=== PATIENT | female | born 2005 | race Two or more races ===

== ENCOUNTER 2025-07-28 10:32 | Emergency (ER) | payer MEDICAID, SELFPAY ==
[2025-07-28 10:32] VITALS: BMI 35.9
[2025-07-28 10:41] VITALS: BP 117/83; PULSE 92; RESP 18; TEMP 36.8; O2SAT 96
--- NOTE | 2025-07-28 10:45 | XR_ITS ---
Examination: Abdomen sonogram, Limited Date and time of exam: July 28, 2025, 1119 hours INDICATIONS: Right upper abdominal pain beginning 2 days ago Technique: Real-time perrin scale transabdominal sonographic images of the upper abdomen obtained. Findings: No gallstones Gallbladder wall 0.4 cm Common bile duct 0.4 cm Pancreatic head 1.5 cm Liver 18.2 cm fatty infiltration no focal liver lesions Normal hepatopetal portal venous flow Patent IVC IMPRESSION: Negative for gallstones Borderline thickening gallbladder wall, clinical correlation advised, consider HIDA scan or MRCP follow-up to exclude cholecystitis as clinically warranted
--- NOTE | 2025-07-28 10:45 | XR_ITS ---
Examination: CT abdomen and pelvis without contrast. Coronal 3-D reconstructions. Sagittal 2-D reconstructions. Date and time of exam: July 28, 2025, 1142 hours INDICATIONS: Lower abdominal pain and nausea beginning 2 days ago CTDI: vol (mGy): 12.5 DLP: (mGycm): 711 Technique: Axial images of the abdomen have been obtained, 3 mm slice thickness Intravenous contrast material has not been administered. Low dose protocols were performed. One or more of the following dose reduction techniques were used; automated exposure control, adjustment of the mA and/or KV according to patient size, use of iterative reconstruction technique. Findings: Fatty infiltration throughout the liver. No focal liver or splenic lesions No gallstones No pancreatic mass No renal or ureteral calculi, no hydronephrosis Aorta normal size No bowel obstruction 5 mm fat-containing umbilical hernia Normal appendix No diverticulitis No pelvic mass Contracted urinary bladder Moderate osteopenia IMPRESSION: No renal or ureteral calculi, no hydronephrosis Normal appendix No bowel obstruction diverticulitis or free air
--- NOTE | 2025-07-28 10:46 | PD.EDRME ---
Rapid Medical Screening Exam RME Arrival date/time: 07/28/25 10:32 19-year-old female presents to the emergency department of complaint of generalized abdominal pain Chief Complaint: Abdominal Pain Vital signs: Vital Signs Temperature 98.2 F 07/28/25 10:41 Pulse Rate 92 07/28/25 10:41 Respiratory Rate 18 07/28/25 10:41 Blood Pressure 117/83 07/28/25 10:41 Pulse Oximetry (%) 96 07/28/25 10:41 Oxygen Delivery Method Room Air 07/28/25 10:41 Vital signs reviewed by provider: Yes Exam: On exam well-appearing does not appear look toxic does appear to be in pain Clinical Impression: Labs and imaging ordered
[2025-07-28] MEDS: KETOROLAC INJ 30 MG/ML VIAL IM (10:59)
[2025-07-28] MEDS: METOCLOPRAMIDE INJ 5 MG/ML VIAL 2 ML 10 MG IM (11:00)
[2025-07-28 11:07] LABS: Basophils # (Auto) 0.1 Thou/mm3 (0.0-0.2); Basophils % (Auto) 0 % (0-2.5); Eosinophils # (Auto) 0.0 Thou/mm3 (0.0-0.5); Eosinophils % (Auto) 0 % (0-10); Hematocrit 37.0 % (36.0-46.0); Hemoglobin 11.9 g/dL (12.0-16.0); Immature Granulocytes Auto 0.03 Thou/mm3 (0.00-0.00); Lymphocytes # (Auto) 0.7 Thou/mm3 (1.0-4.8); Lymphocytes % (Auto) 6 % (10-50); Mean Corpuscular HGB Conc 32.2 g/dl (31.0-37.0); Mean Corpuscular Hemoglobin 28.5 pg (25.0-35.0); Mean Corpuscular Volume 89 fL (80-100); Monocytes # (Auto) 0.6 Thou/mm3 (0.0-0.8); Monocytes % (Auto) 5 % (0-12); Neutrophils # (Auto) 10.3 Thou/mm3 (1.8-7.7); Neutrophils % (Auto) 88 % (37-80); Nucleated Red Blood Cell # 0.00 Thou/mm3 (0.00-0.00); Nucleated Red Blood Cell % 0 /100 WBC (0); Platelet Count 248 Thou/mm3 (140-440); RDW Standard Deviation 41.0 fL (36.4-46.3); Red Blood Count 4.17 Miln/mm3 (4.00-5.20); White Blood Count 11.7 Thou/mm3 (3.6-11.0)
[2025-07-28 11:21] LABS: Collection Type, Urine Clean Catch
[2025-07-28 11:25] LABS: HCG Qualitative,Urine Negative
[2025-07-28 11:27] LABS: Alanine Aminotransferase 33 U/L (10-49); Albumin, Serum 4.7 gm/dL (3.5-5.0); Albumin/Globulin Ratio 1.8 (1.2-2.2); Alkaline Phosphatase 78 U/L (46-116); Anion Gap 11 (7-16); Aspartate Amino Transferase 27 U/L (0-34); BUN/Creatinine Ratio 10 Ratio (12-20); Bilirubin,Total 0.3 mg/dL (0.3-1.2); Blood Urea Nitrogen 7 mg/dL (9-23); Calcium 8.8 mg/dL (8.3-10.6); Calcium (Corrected) 8.8 mg/dL (8.5-10.1); Carbon Dioxide 24.4 mMol/L (20.0-31.0); Chloride 105 mMol/L (98-107); Creatinine (Component) 0.7 mg/dL (0.6-1.3); Estimated Creatinine Clearance 137.0 mL/min (>60); Globulin 2.6 gm/dL (2.3-3.5); Glucose 120 mg/dL (74-106); Lipase 23 U/L (12-53); Osmolality,Calculated 278 (275-295); Potassium 4.0 mMol/L (3.4-5.1); Sodium 140 mMol/L (136-145); Total Protein 7.3 gm/dL (5.7-8.2); eGFR > 60 See Note
[2025-07-28 11:31] LABS: Bilirubin,Urine Negative (Negative); Blood,Urine 3+ (Negative); Color,Urine Yellow (Lt Yel-Yel); Culture Indicated,Urine Contaminated; Glucose, Urine Negative (Negative); Ketones,Urine Negative (Negative); Leukocyte Esterase,Urine Positive (Negative); Nitrite,Urine Negative (Negative); PH,Urine 6.0 (5.0-7.0); Protein,Urine 1+ (Neg - Trace); RBC,Urine 510 /hpf (0-3); Specific Gravity,Urine 1.033 (1.001-1.035); Squamous Epithelial Cell,Urine 18 /hpf (0-5); Urobilinogen,Urine Negative mg/dL (0.0-1.0); WBC,Urine 76 /hpf (0-5)
[2025-07-28 11:35] LABS: Clarity,Urine Hazy (Clear/Hazy)
--- NOTE | 2025-07-28 12:41 | EDNOTE_ITS ---
ED General RME/HPI General Chief complaint: Abdominal Pain Stated complaint: abd pain Time Seen by Provider: 07/28/25 12:18 Arrival date/time: 07/28/25 10:32 CC: Abdominal pain CC: Ongoing since yesterday epigastric with radiation into the belly and up above the epigastrium. To a lesser stents there 2 to 3 months ago but now severe today. No prior history of similar events no OTC medicines taken denies chest pain shortness of breath or difficulty breathing. RME / HPI RME / HPI narrative: 07/28/25 10:32 19-year-old female presents to the emergency department of complaint of generalized abdominal pain Exam: On exam well-appearing does not appear look toxic does appear to be in pain Impression: Labs and imaging ordered Related Data Previous Rx's ?Medication ?Instructions ?Recorded acetaminophen 500 mg tablet 500 mg PO QID PRN pain #14 tabs 07/10/18 famotidine 20 mg tablet 20 mg PO QDAY #30 tabs 07/28 Allergies Allergy/AdvReac Type Severity Reaction Status Date / Time No Known Allergies Allergy Verified 08/13/18 16:45 Review of Systems Review of Systems Narrative Review of Systems: GEN: No fever, no chills, no weight loss EYES: No discharge, no visual changes, no pain HEENT: No ear pain, no congestion, no sore throat PULM: No shortness of breath, no cough, no congestion CV: No chest pain, no dyspnea on exertion, no palpitations GI: No nausea, no vomiting, no diarrhea, + pain, no constipation : No frequency, no urgency, no dysuria MUSC/SKEL: No joint pain, no back pain SKIN: No rash PSYCH: No hallucinations, no depression HEME/LYMPH: No easy bleeding or bruising tendencies NEURO: No weakness, no headache Past Medical History Past Medical History CARDIAC: Negative Congestive Heart Failure RESPIRATORY: Negative Chronic Obstructive Pulmonary Disease (COPD) GENITOURINARY: Negative Renal Disease ENDOCRINE: Negative Diabetes Mellitus Type 1 or Diabetes Mellitus Type 2 Social History SMOKING STATUS: Never smoker ED Exam Narrative Physical exam: [General: Obese not in any acute distress Head normocephalic HEENT: Within acceptable limits Neck is supple nontender Chest equal chest rise nontender to palpation Respiratory: Clear to auscultation no wheezes crackles or rubs CV: Rate rhythm is regular no murmurs rubs or clicks Abdomen epigastric tenderness with palpation no reflexive guarding rebound tenderness no right upper quadrant or left upper quadrant tenderness with palpation. Back: No CVA tenderness no spinous process tenderness from cervical spine thoracic and lumbar spine Skin: Intact no petechiae rash induration ulceration or crepitus Extremities: Moving all extremity against resistance cap refill less than 2 seconds neurosensory intact Neuro: Awake alert oriented x3 Glascow coma 15 no focal deficits] Course Course Course Narrative: Patient will be put on PPI I suspect this is all reflux in nature. As the patient afebrile nontoxic-appearing. Quality Measures none Orders Category Date Time Status CT abdomen pelvis wo con Stat Exams 07/28/25 10:45 Completed US gall bladder Stat Exams 07/28/25 10:45 Completed CBC Stat Lab 07/28/25 10:53 Completed Comprehensive Metabolic Panel Stat Lab 07/28/25 10:53 Completed HCG Qualitative,Urine Stat Lab 07/28/25 11:17 Completed Lipase Stat Lab 07/28/25 10:53 Completed UA, C/S IF [Urinalysis, C/S if Indicated] Stat Lab 07/28/25 11:17 Completed Ketorolac Inj [Toradol Inj] Med 07/28/25 10:54 Discontinued 30 mg IM X1 ONE Lidocaine 2% Viscous [Xylocaine 2% Viscous] Med 07/28/25 13:17 Once 15 ml PO X1 ONE Metoclopramide Inj [Reglan Inj] Med 07/28/25 10:54 Discontinued 10 mg IM X1 ONE mg Hyd/Al Hyd/Rosario Susp [Maalox Susp] Med 07/28/25 13:17 Once 30 ml PO X1 ONE Vital Signs Vital signs: Vital Signs Temperature 98.2 F 07/28/25 10:41 Pulse Rate 92 07/28/25 10:41 Respiratory Rate 18 07/28/25 10:41 Blood Pressure 117/83 07/28/25 10:41 Pulse Oximetry (%) 96 07/28/25 10:41 Oxygen Delivery Method Room Air 07/28/25 10:41 Discharge Plan Plan Patient Disposition: HOME (Self Care) Patient condition on transfer: Stable Prescriptions/Referrals Prescriptions/Med Rec: New famotidine 20 mg tablet 20 mg PO QDAY Qty: 30 1RF No Action acetaminophen 500 mg tablet 500 mg PO QID PRN (Reason: pain) Qty: 14 0RF Referrals: Gab Norman MD [Primary Care Provider, Family Practice] - In 1 week Problem List Clinical Impression: Acid reflux Patient/Caregiver Discharge Instructions Education Materials: ED Diet, Weber (Adult), ED GERD (Adult) Additional Instructions: Take the medication once a day, avoid all greasy spicy fatty foods or alcohol. Follow-up with your primary care doctor if there is worsening of symptoms in spite of medications return the emergency room meetly for further evaluation. Print Language: Mozambican Stand Alone Forms: Kaitlynn Award Info., Patient Portal Info Letter, Work/School Release PA/SEISMIC SURVEY ASSISTANT Supervising Physician PA/SEISMIC SURVEY ASSISTANT Supervising Physician: Devin Toledo ENP [facility] Clinical Information Provided by: patient Medical Records reviewed [facility] Meds/Rx considered, not ordered None Labs/Rad/Tests considered, not ordered None Chronic Illness/Social Conditions Explain: Obesity EKG EKG not done Labs Labs: interpreted by or Lab(s) Interpretation(s): CBC shows mild leukocytosis at 11.7 no anemia or thrombocytopenia CMP shows no significant electrolyte imbalances renal impairment transaminitis or T. bili elevation Urine is 3+ blood. RBCs of 5-10 WBC 7 6 no bacteria. There is a contaminated specimen. Imaging Imaging interpretation: interpreted by or Imaging Interpretation(s): Gallbladder shows cholelithiasis without cholecystitis. CT shows nothing acute that requires immediate emergent intervention. Medication Administration(s) Medication Administration History Discontinued Medications Ketorolac Tromethamine (Ketorolac Inj 30 Mg/Ml Vial) 30 mg IM X1 ONE Stop: 07/28/25 10:55 Last Admin: 07/28/25 10:59 Dose: 30 mg Documented By: Metoclopramide HCl (Metoclopramide Inj 5 Mg/Ml Vial 2 Ml) 10 mg IM X1 ONE; Protocol Stop: 07/28/25 10:55 Last Admin: 07/28/25 11:00 Dose: 10 mg Documented By:
[2025-07-28 12:44] VITALS: BP 118/75; PULSE 87; RESP 19; TEMP 36.9; O2SAT 97
[2025-07-28] MEDS: MG HYD/AL HYD/SIME (Maalox Reg) SUSP 30 ML UDC PO (13:38)
[2025-07-28] MEDS: LIDOCAINE VISCOUS 2% 15 ML UDC PO (13:38)
== END 2025-07-28 13:42 | disposition home or self-care (01) ==
PROVIDERS: Nurse Practitioner Primary Care; Emergency Provider Family Medicine; PCP Family Medicine
DX: K21.9 Gastro-esophageal reflux disease without esophagitis (principal); R10.30 Lower abdominal pain, unspecified
CPT/HCPCS: 36415; 74176; 76705; 80053; 81001; 81025; 83690; 85025; 96372; 99284; J1885; J2765; J3490; A9270